=== PATIENT | female | born 1965 | race Caucasian/White ===

== ENCOUNTER 2016-10-06 12:42 | Emergency (ER) | payer MEDICARE ==
[2016-10-06 13:04] VITALS: BP 118/69
[2016-10-06] MEDS ORDERED: Ketorolac 60 MG/2 ML SDV IM ONE (13:19)
--- NOTE | 2016-10-06 13:21 | EDM.PDOC ---
ED HPI GENERAL MEDICAL PROBLEM - General Chief Complaint: Lower Extremity Injury/Pain Stated Complaint: POSSIBLE BROKEN ANKLE Time Seen by Provider: 10/06/16 13:10 Source of Information: Reports: Patient History Limitations: Reports: No Limitations - History of Present Illness INITIAL COMMENTS - FREE TEXT/NARRATIVE: States fell in a hole yesterday and twisted her ankle. Was painful last evening but more bruised today. Pain is in the lateral malleous area. Denies any numbness or tingling. Has not iced it. Onset Date: 10/05/16 Location: Reports: Lower Extremity, Right Quality: Reports: Throbbing Associated Symptoms: Reports: No Other Symptoms - Related Data Allergies Allergy/AdvReac Type Severity Reaction Status Date / Time aspirin [From Percodan] Allergy Rash Verified 03/16/16 02:51 Dairy Products Allergy Cannot Verified 10/06/16 12:50 Remember egg Allergy Cannot Verified 10/06/16 12:50 Remember hydrocodone Allergy Cannot Verified 10/06/16 12:50 Remember oxycodone HCl [From Percodan] Allergy Rash Verified 10/06/16 12:50 oxycodone terephthalate Allergy Rash Verified 10/06/16 12:50 [From Percodan] peanut Allergy Cannot Verified 10/06/16 12:50 Remember Home Meds: Home Meds Bromocriptine [Parlodel] 2.5 mg PO DAILY 03/28/13 [History] Cyanocobalamin (Vitamin B12) [Cyanocobalamin] 1,000 mcg IM Q30D 03/28/13 [ History] Diazepam [Valium] 2.5 mg PO TID PRN 03/28/13 [History] FLUoxetine HCl [Prozac] 40 mg PO DAILY 03/28/13 [History] Levothyroxine [Sythroid] 100 mcg PO DAILY 03/28/13 [History] Methylphenidate HCl [Ritalin] 20 mg PO TID 03/28/13 [History] Promethazine [Phenergan] 25 mg PO Q6H PRN 03/28/13 [History] oxyCODONE 10 mg PO TID 03/28/13 [History] traMADol HCl [Ultram] 50 mg PO BID PRN 03/28/13 [History] Albuterol Sulfate [Proair Hfa] 2 puff INH Q4HR PRN 07/03/15 [History] Cyclobenzaprine HCl 10 mg PO BEDTIME 07/03/15 [History] Divalproex Sodium 500 mg PO BID 07/03/15 [History] Past Medical History HEENT History: Reports: Impaired Vision Cardiovascular History: Reports: High Cholesterol Respiratory History: Reports: Asthma, Other (See Below) Other Respiratory History: lung nodule [employer] [place] History: Reports: Musculoskeletal History: Reports: Back Pain, Chronic, Neck Pain, Chronic, Osteoarthritis Neurological History: Reports: Brain Injury, Head Trauma, Migraines, Seizure Psychiatric History: Reports: ADHD, Anxiety, Bipolar, Depression, Emotional Problems, Mood Swings, Panic Attack, Psych Hospitalization(s) Endocrine/Metabolic History: Reports: Hypothyroidism, Vitamin D Deficiency Other Endocrine/Metabolic History: hypoglycemia Hematologic History: Reports: Anemia, B12 Deficiency - Past Surgical History HEENT Surgical History: Reports: Tonsillectomy GI Surgical History: Reports: Colonoscopy Social & Family History - Family History Family Medical History: Noncontributory - Tobacco Use Smoking Status *Q: Current Some Day Smoker Years of Tobacco use: 20 Packs/Tins Daily: 0.5 - Recreational Drug Use Recreational Drug Use: No Drug Use in Last 12 Months: No Recreational Drug Type: Reports: Marijuana/Hashish Recreational Drug Use Frequency: Monthly Review of Systems - Review of Systems Review Of Systems: See Below Constitutional: Reports: No Symptoms Musculoskeletal: Reports: Leg Pain, Foot Pain Skin: Denies: Wound ED EXAM, GENERAL - Physical Exam Exam: See Below Exam Limited By: No Limitations General Appearance: Alert, Moderate Distress Extremities: Other (right ankle is tender to touch. Mild swelling noted to the lateral ankle. SLight bruising noted. No numbness or tingling noted to the area. Pulse is strong. Good sensation noted distally. Decrease in ROM to the right ankle. ) Neurological: Alert, Oriented Skin Exam: Warm, Dry, Intact Course - Vital Signs Last Recorded V/S: Last Vital Signs Temp 97.6 F 10/06/16 12:54 Pulse 100 10/06/16 12:54 Resp 18 10/06/16 12:54 BP 118/69 10/06/16 12:54 Pulse Ox 95 10/06/16 12:54 - Orders/Labs/Meds Orders: Active Orders 24 hr Category Date Time Status Ankle Min 3V Rt [CR] Stat Exams 10/06/16 12:56 Stop Req Ankle Min 3V Rt [CR] Stat Exams 10/06/16 13:10 Ordered Meds: Medications Discontinued Medications Generic Name Dose Route Start Last Admin Trade Name Jessie PRN Reason Stop Dose Admin Ketorolac Tromethamine 60 mg 10/06/16 13:19 10/06/16 13:25 Toradol IM 10/06/16 13:20 60 mg ONETIME ONE Administration Departure - Departure Time of Disposition: 13:20 Disposition: Home, Self-Care 01 Condition: Good Clinical Impression: Right ankle sprain - Discharge Information Instructions: Ankle Sprain, [id number] Forms: ED Department Discharge Additional Instructions: Use Tylenol or advil for discomfort. If not controlled use your tramadol that you have at home for the discomfort. Ice ankle 20 minutes at a time 2-3 times a day for the swelling Use brace as much as possible to help support ankle. Take off at night or when not weight bearing. - Problem List & Annotations (1) Right ankle sprain SNOMED Code(s): 37236315 Code(s): S93.401A - SPRAIN OF UNSPECIFIED LIGAMENT OF RIGHT ANKLE, INIT ENCNTR Status: Acute Qualifiers: Encounter type: initial encounter Involved ligament of ankle: unspecified ligament Qualified Code(s): S93.401A - Sprain of unspecified ligament of right ankle, initial encounter - Problem List Review Problem List Initiated/Reviewed/Updated: Yes - My Orders Last 24 Hours: My Active Orders 10/06/16 13:10 Ankle Min 3V Rt [CR] Stat - Assessment/Plan Last 24 Hours: My Active Orders 10/06/16 13:10 Ankle Min 3V Rt [CR] Stat
== END 2016-10-06 13:39 | disposition home or self-care (01) ==
LOC: CC.ED 12:42
DX: S93.401A Sprain of unspecified ligament of right ankle, initial encounter (principal); E78.00 Pure hypercholesterolemia, unspecified; J45.909 Unspecified asthma, uncomplicated; M19.90 Unspecified osteoarthritis, unspecified site; F17.210 Nicotine dependence, cigarettes, uncomplicated; E03.9 Hypothyroidism, unspecified; Z86.2 Personal history of diseases of the blood and blood-forming organs and certain disorders involving the immune mechanism; Z98.890 Other specified postprocedural states; Z88.6 Allergy status to analgesic agent; Z88.5 Allergy status to narcotic agent; Z91.010 Allergy to peanuts; Z91.011 Allergy to milk products; Z79.899 Other long term (current) drug therapy; X50.9XXA Other and unspecified overexertion or strenuous movements or postures, initial encounter
CPT/HCPCS: 73610; 96372; 99283; J1885

== ENCOUNTER 2017-10-08 06:30 | Emergency (ER) | payer MEDICARE, OTHER ==
[2017-10-08 06:42] VITALS: BP 126/70
[2017-10-08] MEDS: SUMAtriptan 6 MG/0.5 ML SDV SUBCUT ONE (06:48)
[2017-10-08] MEDS: Ondansetron 4 MG Tab.DIS PO ONE (06:55)
--- NOTE | 2017-10-08 07:04 | EDM.PDOC ---
ED HPI GENERAL MEDICAL PROBLEM - General Chief Complaint: Headache Stated Complaint: migraine Time Seen by Provider: 10/08/17 06:57 Source of Information: Reports: Patient - History of Present Illness INITIAL COMMENTS - FREE TEXT/NARRATIVE: This patient is a 52 year old female that presents to the ER. This patient reports having chronic history of migraines. This patient reports that this feels exactly like her migraine that is starting. She reports headache frontal that migrates over the top part of head. Patient reports nausea, photophobia, phonophobia. The patient is alert and oriented. She reports that getting Imitrex helps her migraines. She reports she has a prescription for it, but its to expensive, so she does not fill it. No unilateral weaknesses. Onset: Today Onset Date: 10/08/17 Onset Time: 05:00 Duration: Getting Worse Location: Reports: Head Severity: Mild Improves with: Reports: None Worsens with: Reports: None Associated Symptoms: Reports: Headaches, Nausea/Vomiting. Denies: Confusion, Chest Pain, Cough, cough w sputum, Diaphoresis, Fever/Chills, Loss of Appetite, Rash, Seizure, Shortness of Breath, Weakness Headache Pain Score (Numeric/FACES): 7 - Related Data Allergies Allergy/AdvReac Type Severity Reaction Status Date / Time aspirin [From Percodan] Allergy Rash Verified 10/08/17 06:38 Dairy Products Allergy Cannot Verified 10/08/17 06:38 Remember egg Allergy Cannot Verified 10/08/17 06:38 Remember hydrocodone Allergy Cannot Verified 10/08/17 06:38 Remember oxycodone HCl [From Percodan] Allergy Rash Verified 10/08/17 06:38 oxycodone terephthalate Allergy Rash Verified 10/08/17 06:38 [From Percodan] peanut Allergy Cannot Verified 10/08/17 06:38 Remember Home Meds: Home Meds Bromocriptine [Parlodel] 2.5 mg PO DAILY 03/28/13 [History] Cyanocobalamin (Vitamin B12) [Cyanocobalamin] 1,000 mcg IM Q30D 03/28/13 [ History] FLUoxetine HCl [Prozac] 40 mg PO DAILY 03/28/13 [History] Levothyroxine [Sythroid] 100 mcg PO DAILY 03/28/13 [History] Methylphenidate HCl [Ritalin] 20 mg PO TID 03/28/13 [History] Promethazine [Phenergan] 25 mg PO Q6H PRN 03/28/13 [History] traMADol HCl [Ultram] 50 mg PO BID PRN 03/28/13 [History] Albuterol Sulfate [Proair Hfa] 2 puff INH Q4HR PRN 07/03/15 [History] Cyclobenzaprine HCl 10 mg PO BEDTIME 07/03/15 [History] Divalproex Sodium 500 mg PO BID 07/03/15 [History] ARIPiprazole [Abilify] 5 mg PO DAILY 10/08/17 [History] Ketorolac [Toradol] 10 mg PO QID 10/08/17 [History] Past Medical History HEENT History: Reports: Impaired Vision Cardiovascular History: Reports: Heart Murmur, High Cholesterol Respiratory History: Reports: Asthma, Other (See Below) Other Respiratory History: lung nodule 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: Musculoskeletal History: Reports: Back Pain, Chronic, Neck Pain, Chronic, Osteoarthritis Neurological History: Reports: Brain Injury, Head Trauma, Migraines, Seizure Psychiatric History: Reports: ADHD, Anxiety, Bipolar, Depression, Emotional Problems, Mood Swings, Panic Attack, Psych Hospitalization(s) Endocrine/Metabolic History: Reports: Hypothyroidism, Vitamin D Deficiency, Other (See Below) Other Endocrine/Metabolic History: hypoglycemia Hematologic History: Reports: Anemia, B12 Deficiency - Past Surgical History HEENT Surgical History: Reports: Tonsillectomy Respiratory Surgical History: Reports: None GI Surgical History: Reports: Colonoscopy Musculoskeletal Surgical History: Reports: None Social & Family History - Family History Family Medical History: Noncontributory - Tobacco Use Smoking Status *Q: Current Every Day Smoker Years of Tobacco use: 30 Packs/Tins Daily: 1 - Recreational Drug Use Recreational Drug Use: No ED ROS GENERAL - Review of Systems Review Of Systems: See Below Constitutional: Reports: No Symptoms HEENT: Reports: Other (photophobia/phonophobia) Respiratory: Reports: No Symptoms Cardiovascular: Reports: No Symptoms Endocrine: Reports: No Symptoms GI/Abdominal: Reports: Nausea : Reports: No Symptoms Musculoskeletal: Reports: No Symptoms Skin: Reports: No Symptoms Neurological: Reports: Headache Psychiatric: Reports: No Symptoms Hematologic/Lymphatic: Reports: No Symptoms Immunologic: Reports: No Symptoms - Physical Exam Exam: See Below Exam Limited By: No Limitations General Appearance: Alert, WD/WN, No Apparent Distress Eye Exam: Bilateral Eye: EOMI, Normal Inspection, PERRL Ears: Normal External Exam, Normal Canal, Hearing Grossly Normal, Normal TMs Nose: Normal Inspection, Normal Mucosa, No Blood Throat/Mouth: Normal Inspection, Normal Lips, Normal Teeth, Normal Gums, Normal Oropharynx, Normal Voice, No Airway Compromise Head Exam: Atraumatic, Normocephalic Neck: Normal Inspection, Supple, Non-Tender, Full Range of Motion Respiratory/Chest: No Respiratory Distress, Lungs Clear, Normal Breath Sounds, No Accessory Muscle Use Cardiovascular: Normal Peripheral Pulses, Regular Rate, Rhythm, No Edema, No Gallop, No JVD, No Murmur, No Rub GI/Abdominal: Normal Bowel Sounds, Soft, Non-Tender, No Organomegaly (Female) Exam: Deferred Rectal (Female) Exam: Deferred Neuro Exam (Abbreviated): Alert, Oriented, CN II-XII Intact, Normal Cognition, Normal Gait, No Motor/Sensory Deficits Back Exam: Normal Inspection, Full Range of Motion Extremities: Normal Inspection, Normal Range of Motion, Non-Tender, No Pedal Edema, Normal Capillary Refill Psychiatric: Normal Affect, Normal Mood Skin Exam: Warm, Dry, Intact, Normal Color, No Rash Course - Vital Signs Last Recorded V/S: Last Vital Signs Temp 95.9 F 10/08/17 06:39 Pulse 58 L 10/08/17 06:39 Resp 18 10/08/17 06:39 BP 126/70 10/08/17 06:39 Pulse Ox 95 10/08/17 06:39 - Orders/Labs/Meds Meds: Medications Discontinued Medications Generic Name Dose Route Start Last Admin Trade Name Jessie PRN Reason Stop Dose Admin Ondansetron HCl 4 mg 10/08/17 06:52 10/08/17 06:55 Zofran Odt PO 10/08/17 06:53 4 mg ONETIME ONE Administration Sumatriptan Succinate 6 mg 10/08/17 06:44 10/08/17 06:48 Imitrex SUBCUT 10/08/17 06:45 6 mg ONETIME ONE Administration Departure - Departure Time of Disposition: 07:03 Disposition: Home, Self-Care 01 Condition: Fair Clinical Impression: Migraine - Discharge Information *PRESCRIPTION DRUG MONITORING PROGRAM REVIEWED*: No *COPY OF PRESCRIPTION DRUG MONITORING REPORT IN PATIENT PHILOMENA: No Instructions: Migraine Headache, [id number] Referrals: Jb Price MD [Primary Care Provider] - Forms: ED Department Discharge Additional Instructions: Followup with your primary care provider Return to the ER for worsening of condition or any emergent concerns Increase fluids Go home and rest in a quiet, cool, dark room. - Assessment/Plan Plan: PLEASE SEE RN NOTE FOR PFSH.
== END 2017-10-08 07:11 | disposition home or self-care (01) ==
LOC: CC.ED 06:30
DX: G43.909 Migraine, unspecified, not intractable, without status migrainosus (principal); E78.00 Pure hypercholesterolemia, unspecified; J45.909 Unspecified asthma, uncomplicated; E03.9 Hypothyroidism, unspecified; F17.210 Nicotine dependence, cigarettes, uncomplicated; Z79.899 Other long term (current) drug therapy
CPT/HCPCS: 96372; 99282; 99283; A9270; J3030

== ENCOUNTER 2017-11-11 11:10 | Emergency (ER) | payer MEDICARE, OTHER ==
[2017-11-11 11:34] VITALS: BP 101/70
[2017-11-11] MEDS ORDERED: Ketorolac 60 MG/2 ML SDV IM ONE (11:36)
--- NOTE | 2017-11-11 11:44 | EDM.PDOC ---
ED HPI GENERAL MEDICAL PROBLEM - General Chief Complaint: Laceration Stated Complaint: lac 1st finger Time Seen by Provider: 11/11/17 11:30 Source of Information: Reports: Patient History Limitations: Reports: No Limitations - History of Present Illness INITIAL COMMENTS - FREE TEXT/NARRATIVE: Patient presents to ER with a laceration to her index finger of left hand. Was cutting broccoli and slipped with the knife. Occurred 2 hours ago and has had a bandage on it since that time and continued to work. Does admit to pain, throbbing. 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) Left Hand Pain Score (Numeric/FACES): 8 - Related Data Allergies Allergy/AdvReac Type Severity Reaction Status Date / Time aspirin [From Percodan] Allergy Rash Verified 11/11/17 11:34 Dairy Products Allergy Cannot Verified 11/11/17 11:34 Remember egg Allergy Cannot Verified 11/11/17 11:34 Remember hydrocodone Allergy Cannot Verified 11/11/17 11:34 Remember oxycodone HCl [From Percodan] Allergy Rash Verified 11/11/17 11:34 oxycodone terephthalate Allergy Rash Verified 11/11/17 11:34 [From Percodan] peanut Allergy Cannot Verified 11/11/17 11:34 Remember Home Meds: Home Meds Bromocriptine [Parlodel] 2.5 mg PO DAILY 03/28/13 [History] Cyanocobalamin (Vitamin B12) [Cyanocobalamin] 1,000 mcg IM Q30D 03/28/13 [ History] FLUoxetine HCl [Prozac] 40 mg PO DAILY 03/28/13 [History] Levothyroxine [Sythroid] 100 mcg PO DAILY 03/28/13 [History] Methylphenidate HCl [Ritalin] 20 mg PO TID 03/28/13 [History] Promethazine [Phenergan] 25 mg PO Q6H PRN 03/28/13 [History] traMADol HCl [Ultram] 50 mg PO BID PRN 03/28/13 [History] Albuterol Sulfate [Proair Hfa] 2 puff INH Q4HR PRN 07/03/15 [History] Cyclobenzaprine HCl 10 mg PO BEDTIME 07/03/15 [History] Divalproex Sodium 500 mg PO BID 07/03/15 [History] ARIPiprazole [Abilify] 5 mg PO DAILY 10/08/17 [History] Past Medical History HEENT History: Reports: Impaired Vision Cardiovascular History: Reports: Heart Murmur, High Cholesterol Respiratory History: Reports: Asthma, Other (See Below) Other Respiratory History: lung nodule 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: Musculoskeletal History: Reports: Back Pain, Chronic, Neck Pain, Chronic, Osteoarthritis Neurological History: Reports: Brain Injury, Head Trauma, Migraines, Seizure Psychiatric History: Reports: ADHD, Anxiety, Bipolar, Depression, Emotional Problems, Mood Swings, Panic Attack, Psych Hospitalization(s) Endocrine/Metabolic History: Reports: Hypothyroidism, Vitamin D Deficiency, Other (See Below) Other Endocrine/Metabolic History: hypoglycemia Hematologic History: Reports: Anemia, B12 Deficiency - Past Surgical History HEENT Surgical History: Reports: Tonsillectomy Respiratory Surgical History: Reports: None GI Surgical History: Reports: Colonoscopy Musculoskeletal Surgical History: Reports: None Social & Family History - Family History Family Medical History: Noncontributory ED ROS GENERAL - Review of Systems Review Of Systems: ROS reveals no pertinent complaints other than HPI. ED EXAM, SKIN/RASH Exam: See Below Exam Limited By: No Limitations General Appearance: Alert, WD/WN, No Apparent Distress Extremities: Other Neurological: Alert, Oriented Skin: Warm, Wound/Incision (1 cm superficial laceration to distal tip of index finger) Characteristics: Linear ED SKIN PROCEDURES - Laceration/Wound Repair Left Digit - 2nd (Index) Lac/Wound length In cm: 1 Appearance: Superficial, Clean Distal NVT: Neuro & Vascular Intact Anesthetic Type: Local Skin Prep: Other (steph-marii) Exploration/Debridement/Repair: Wound Explored Closed with: Dermabond, Steri-Strips Sterile Dressing Applied: Provider Tetanus Status Addressed: Yes Complications: No Course - Vital Signs Last Recorded V/S: Last Vital Signs Temp 96.3 F 11/11/17 11:32 Pulse 65 11/11/17 11:32 Resp 16 11/11/17 11:32 BP 101/70 11/11/17 11:32 Pulse Ox 96 11/11/17 11:32 - Orders/Labs/Meds Meds: Medications Discontinued Medications Generic Name Dose Route Start Last Admin Trade Name Jessie PRN Reason Stop Dose Admin Ketorolac Tromethamine 60 mg 11/11/17 11:36 11/11/17 11:44 Toradol IM 11/11/17 11:37 60 mg ONETIME ONE Administration Departure - Departure Time of Disposition: 11:43 Disposition: Home, Self-Care 01 Condition: Good Clinical Impression: Broken skin, Laceration of index finger - Discharge Information *PRESCRIPTION DRUG MONITORING PROGRAM REVIEWED*: No *COPY OF PRESCRIPTION DRUG MONITORING REPORT IN PATIENT PHILOMENA: No Referrals: Jb Price MD [Primary Care Provider] - Forms: ED Department Discharge Additional Instructions: 1. Keep wound clean and dry 2. Keep bandage on for 24 hours 3. Monitor for redness, drainage and call with any concerns of infection 4. Use Tramadol for pain at home 5. Follow up if any concerns.
== END 2017-11-11 11:50 | disposition home or self-care (01) ==
LOC: CC.ED 11:10
DX: S61.211A Laceration without foreign body of left index finger without damage to nail, initial encounter (principal); E78.00 Pure hypercholesterolemia, unspecified; W26.0XXA Contact with knife, initial encounter; Z79.82 Long term (current) use of aspirin; Z79.899 Other long term (current) drug therapy
CPT/HCPCS: 12001; 96372; 99283; J1885

== ENCOUNTER 2018-01-03 14:57 | Emergency (ER) | payer MEDICARE ==
[2018-01-03 15:11] VITALS: BP 126/74
[2018-01-03] MEDS ORDERED: Sodium Chloride 0.9% 1,000 ML IV SCH (15:30)
[2018-01-03] MEDS ORDERED: fentaNYL 100 MCG/2 ML SDV IVPUSH ONE (15:31)
[2018-01-03] MEDS ORDERED: Ondansetron 4 MG/2 ML SDV IVPUSH PRN (15:31)
[2018-01-03] MEDS ORDERED: Iopamidol 612 MG/ML 100 ML Bottle IVPUSH ONE (15:37)
[2018-01-03 15:51] LABS: CHLORIDE,CL 106 mEq/L (98-106); SODIUM,NA 142 mEq/L (136-145)
--- NOTE | 2018-01-03 17:21 | EDM.PDOC ---
ED HPI GENERAL MEDICAL PROBLEM - General Chief Complaint: Abdominal Pain Stated Complaint: ? GALL BLADDER ATTACK Time Seen by Provider: 01/03/18 15:24 Source of Information: Reports: Patient History Limitations: Reports: No Limitations - History of Present Illness INITIAL COMMENTS - FREE TEXT/NARRATIVE: Erica is a 52 yo female who presents to the ER via private vehicle with complaints of abdominal pain. States the pain has been intermittent and is very sharp in nature. Feels it mostly to be isolated to right above the umbilicus. States she still has her gallbladder and appendix. Denies any fevers. Admits the pain has been more persistent the last few days. Appetite has been fairly normal for her. Last bowel movement yesterday and felt it was normal for her, maybe slightly loose. Feels bloated but has been having a difficult time with passing gas. She denies any urinary complaints. No fevers or chills. Usually will get discomfort when trying to stand up from a seated position. States the pain will come on fast and doesn't last very long. UPPER UMBILICAL Pain Score (Numeric/FACES): 10 - Related Data Allergies Allergy/AdvReac Type Severity Reaction Status Date / Time aspirin [From Percodan] Allergy Rash Verified 01/03/18 15:11 Dairy Products Allergy Cannot Verified 01/03/18 15:11 Remember egg Allergy Cannot Verified 01/03/18 15:11 Remember hydrocodone Allergy Cannot Verified 01/03/18 15:11 Remember oxycodone HCl [From Percodan] Allergy Rash Verified 01/03/18 15:11 oxycodone terephthalate Allergy Rash Verified 01/03/18 15:11 [From Percodan] peanut Allergy Cannot Verified 01/03/18 15:11 Remember Home Meds: Home Meds Bromocriptine [Parlodel] 2.5 mg PO DAILY 03/28/13 [History] Cyanocobalamin (Vitamin B12) [Cyanocobalamin] 1,000 mcg IM Q30D 03/28/13 [ History] FLUoxetine HCl [Prozac] 40 mg PO DAILY 03/28/13 [History] Levothyroxine [Sythroid] 100 mcg PO DAILY 03/28/13 [History] Methylphenidate HCl [Ritalin] 20 mg PO TID 03/28/13 [History] Promethazine [Phenergan] 25 mg PO Q6H PRN 03/28/13 [History] traMADol HCl [Ultram] 50 mg PO BID PRN 03/28/13 [History] Albuterol Sulfate [Proair Hfa] 2 puff INH Q4HR PRN 07/03/15 [History] Cyclobenzaprine HCl 10 mg PO BEDTIME 07/03/15 [History] Divalproex Sodium 500 mg PO BID 07/03/15 [History] ARIPiprazole [Abilify] 5 mg PO DAILY 10/08/17 [History] Past Medical History HEENT History: Reports: Impaired Vision Cardiovascular History: Reports: Heart Murmur, High Cholesterol Respiratory History: Reports: Asthma, Other (See Below) Other Respiratory History: lung nodule 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: Musculoskeletal History: Reports: Back Pain, Chronic, Neck Pain, Chronic, Osteoarthritis Neurological History: Reports: Brain Injury, Head Trauma, Migraines, Seizure Psychiatric History: Reports: ADHD, Anxiety, Bipolar, Depression, Emotional Problems, Mood Swings, Panic Attack, Psych Hospitalization(s) Endocrine/Metabolic History: Reports: Hypothyroidism, Vitamin D Deficiency, Other (See Below) Other Endocrine/Metabolic History: hypoglycemia Hematologic History: Reports: Anemia, B12 Deficiency - Past Surgical History HEENT Surgical History: Reports: Tonsillectomy Respiratory Surgical History: Reports: None GI Surgical History: Reports: Bariatric Procedure, Colonoscopy, Hernia Repair/ Other Other GI Surgeries/Procedures: GASTRIC BYPASS, HIATAL HERNIA REPAIR Musculoskeletal Surgical History: Reports: None Social & Family History - Family History Family Medical History: Noncontributory - Tobacco Use Smoking Status *Q: Current Every Day Smoker Years of Tobacco use: 40 Packs/Tins Daily: 1 - Recreational Drug Use Recreational Drug Use: No ED ROS GENERAL - Review of Systems Review Of Systems: ROS reveals no pertinent complaints other than HPI. Constitutional: Reports: No Symptoms HEENT: Reports: No Symptoms Respiratory: Reports: No Symptoms Cardiovascular: Reports: No Symptoms GI/Abdominal: Reports: Abdominal Pain, Flatus, Nausea. Denies: Bloody Stool, Constipation, Diarrhea, Decreased Appetite, Hematemesis, Hematochezia, Melena, Stool Incontinence, Vomiting : Reports: No Symptoms ED EXAM, GI/ABD - Physical Exam Exam: See Below Exam Limited By: No Limitations General Appearance: Alert, Mild Distress Ears: Normal External Exam, Normal Canal, Hearing Grossly Normal, Normal TMs Nose: Normal Inspection, Normal Mucosa, No Blood Throat/Mouth: Normal Inspection, Normal Lips, Normal Teeth, Normal Gums, Normal Oropharynx, Normal Voice, No Airway Compromise Head: Atraumatic, Normocephalic Neck: Normal Inspection, Supple, Non-Tender Respiratory/Chest: No Respiratory Distress, Lungs Clear, Normal Breath Sounds, No Accessory Muscle Use Cardiovascular: Regular Rate, Rhythm, No Edema, No Murmur GI/Abdominal Exam: Normal Bowel Sounds, Tender (midabdominal, negative mcburney' s point. Slight epigastric tenderness as well. ). No: Distended, Guarding, Rigid, Rebound, Hernia, Mass Back Exam: Normal Inspection. No: CVA Tenderness (L), CVA Tenderness (R) Extremities: Normal Inspection Neurological: Alert, Oriented, Normal Cognition, No Motor/Sensory Deficits Psychiatric: Normal Affect, Normal Mood Skin Exam: Warm, Dry, Intact, Normal Color, No Rash Course - Vital Signs Last Recorded V/S: Last Vital Signs Temp 97.2 F 01/03/18 14:59 Pulse 64 01/03/18 14:59 Resp 18 01/03/18 14:59 BP 126/74 01/03/18 14:59 Pulse Ox 100 01/03/18 14:59 - Orders/Labs/Meds Orders: Active Orders 24 hr Category Date Time Status Abdomen 2V AP Flat Upright [CR] Stat Exams 01/03/18 15:28 Stop Req Abdomen Pelvis w Cont [CT] Stat Exams 01/03/18 15:29 Taken Ondansetron [Zofran] Med 01/03/18 15:31 Active 4 mg IVPUSH Q6H PRN Sodium Chloride 0.9% [Normal Saline] 1,000 ml Med 01/03/18 15:30 Active IV ASDIRECTED Medication Orders Sodium Chloride (Normal Saline) 1,000 mls @ 150 mls/hr IV ASDIRECTED FRANKI Last Admin: 01/03/18 15:43 Dose: 150 mls/hr Ondansetron HCl (Zofran) 4 mg IVPUSH Q6H PRN PRN Reason: Nausea Last Admin: 01/03/18 15:38 Dose: 4 mg Labs: Laboratory Tests 01/03/18 01/03/18 01/03/18 Range/Units 15:26 15:26 15:26 WBC 11.1 H (5.0-10.0) 10^3/uL RBC 4.00 (4.00-5.50) 10^6/uL Hgb 11.9 L (12.0-16.0) g/dL Hct 36.7 L (37.0-47.0) % MCV 91.8 (82.0-94.0) fL MCH 29.8 (27.0-32.0) pg MCHC 32.4 L (33.0-38.0) g/dL RDW Coeff of Nancy 14.2 (11.0-15.0) % Plt Count 373 (150-400) 10^3/uL Neut % (Auto) 60.0 (35-85) % Lymph % (Auto) 28.9 (10-55) % [place] % (Auto) 10.0 (0-16) % Eos % (Auto) 1.0 (0-5) % Baso % (Auto) 0.1 (0-3) % Neut # (Auto) 6.65 (1.80-7.00) 10^3/uL Lymph # (Auto) 3.21 (1.00-4.80) 10^3/uL [place] # (Auto) 1.11 H (0.00-0.80) 10^3/uL Eos # (Auto) 0.11 (0.00-0.45) 10^3/uL Baso # (Auto) 0.01 10^3/uL Sodium 142 (136-145) mEq/L Potassium 4.0 (3.5-5.0) mEq/L Chloride 106 (98-106) mEq/L Carbon Dioxide 27 (21-32) mmol/L BUN 29 H D (7-18) mg/dL Creatinine 0.7 (0.6-1.0) mg/dL Est Cr Clr Drug Dosing 82.67 mL/min Estimated GFR (MDRD) > 60 (>=60) mL/min Glucose 69 L D (75-99) mg/dL Calcium 8.3 L (8.4-10.1) mg/dL Total Bilirubin 0.2 (0.0-1.0) mg/dL AST 11 L (15-37) U/L ALT 16 (12-78) U/L Alkaline Phosphatase 56 (46-116) U/L C-Reactive Protein 0.4 (0.2-0.8) mg/dL Total Protein 5.8 L (6.4-8.2) g/dL Albumin 2.6 L (3.4-5.0) g/dL Amylase 27 (25-115) U/L Urine Color Yellow (YELLOW) Urine Appearance Clear (CLEAR) Urine pH 6.5 (4.5-8.0) Ur Specific [place] 1.025 H (1.003-1.020) Urine Protein Negative (NEGATIVE) mg/dL Urine Glucose (UA) 100 H (NEGATIVE) mg/dL Urine Ketones Trace H (NEGATIVE) mg/dL Urine Occult Blood Negative (NEGATIVE) Urine Nitrite Negative (NEGATIVE) Urine Bilirubin Negative (NEGATIVE) Urine Urobilinogen 2.0 H (0.2-1.0) EU/dL Ur Leukocyte Esterase Negative (NEGATIVE) Urine RBC Not seen (0-5) /HPF Urine WBC Not seen (0-5) /HPF Ur Epithelial Cells Few H (NOT SEEN) /HPF Urine Mucus Few H (NOT SEEN) /HPF Meds: Medications Generic Name Dose Route Start Last Admin Trade Name Freq PRN Reason Stop Dose Admin Sodium Chloride 1,000 mls @ 150 mls/hr 01/03/18 15:30 01/03/18 15:43 Normal Saline IV 150 mls/hr ASDIRECTED FRANKI Administration Ondansetron HCl 4 mg 01/03/18 15:31 01/03/18 15:38 Zofran IVPUSH 4 mg Q6H PRN Administration Nausea Discontinued Medications Generic Name Dose Route Start Last Admin Trade Name Freq PRN Reason Stop Dose Admin Fentanyl 50 mcg 01/03/18 15:31 01/03/18 15:38 Sublimaze IVPUSH 01/03/18 15:32 50 mcg ONETIME ONE Administration Iopamidol 100 ml 01/03/18 15:37 01/03/18 15:54 Isovue-300 (61%) IVPUSH 01/03/18 15:38 100 ml ONETIME ONE Administration Departure - Departure Time of Disposition: 17:21 Disposition: Home, Self-Care 01 Clinical Impression: Constipation Qualifiers: Constipation type: unspecified constipation type Qualified Code(s): K59.00 - Constipation, unspecified - Discharge Information Instructions: Constipation, Adult, [id number] Referrals: PCP,None [Primary Care Provider] - Forms: ED Department Discharge Additional Instructions: 1) Recommend drinking half bottle of magnesium citrate. 2) Miralax 17 grams daily 3) increase water intake. 4) Alternate Tylenol and ibuprofen for discomfort 5) Increase fiber in diet 6) Follow up if any concerns. - Problem List & Annotations (1) Constipation SNOMED Code(s): 69178255 Code(s): K59.00 - CONSTIPATION, UNSPECIFIED Status: Acute Current Visit: Yes Qualifiers: Constipation type: unspecified constipation type Qualified Code(s): K59.00 - Constipation, unspecified - My Orders Last 24 Hours: My Active Orders 01/03/18 15:28 Abdomen 2V AP Flat Upright [CR] Stat 01/03/18 15:29 Abdomen Pelvis w Cont [CT] Stat 01/03/18 15:30 Sodium Chloride 0.9% [Normal Saline] 1,000 ml IV ASDIRECTED 01/03/18 15:31 Ondansetron [Zofran] 4 mg IVPUSH Q6H PRN - Assessment/Plan Last 24 Hours: My Active Orders 01/03/18 15:28 Abdomen 2V AP Flat Upright [CR] Stat 01/03/18 15:29 Abdomen Pelvis w Cont [CT] Stat 01/03/18 15:30 Sodium Chloride 0.9% [Normal Saline] 1,000 ml IV ASDIRECTED 01/03/18 15:31 Ondansetron [Zofran] 4 mg IVPUSH Q6H PRN Plan: Laboratory work unremarkable. CT of the abdomen/pelvis showed moderate constipation. No sign of appendicitis or gallbladder etiology. Patient was given intravenous fluids, zofran and fentanyl (1 time dose) for discomfort. She admitted to feeling a lot better. Will discharge home, see additional instructions for details.
== END 2018-01-03 17:22 | disposition home or self-care (01) ==
LOC: CC.ED 14:57
DX: K59.00 Constipation, unspecified (principal); E03.9 Hypothyroidism, unspecified; F17.210 Nicotine dependence, cigarettes, uncomplicated; Z79.899 Other long term (current) drug therapy; Z88.8 Allergy status to other drugs, medicaments and biological substances; Z91.010 Allergy to peanuts; Z91.012 Allergy to eggs; Z91.011 Allergy to milk products; Z88.6 Allergy status to analgesic agent
CPT/HCPCS: 36415; 74177; 80053; 81001; 82150; 85025; 86140; 96361; 96374; 96375; 99284; J2405; J3010; J7030; Q9967

== ENCOUNTER 2018-11-11 17:41 | Emergency (ER) | payer MEDICARE ==
[2018-11-11 17:43] VITALS: BP 158/63; PULSE 72
--- NOTE | 2018-11-11 17:47 | EDM.PDOC ---
ED HPI GENERAL MEDICAL PROBLEM - General Chief Complaint: Lower Extremity Injury/Pain Stated Complaint: R Knee Pain Time Seen by Provider: 11/11/18 17:43 Source of Information: Reports: Patient History Limitations: Reports: No Limitations - History of Present Illness INITIAL COMMENTS - FREE TEXT/NARRATIVE: in with c/o slipped on a greasy floor at work this afternoon, has pain and bruising to the right knee, denies any ankle, hip, neck or back pain, no numbness or tingling Onset: Today Duration: Hour(s): Location: Reports: Upper Extremity, Right Quality: Reports: Ache Severity: Mild Improves with: Reports: None Worsens with: Reports: Movement Associated Symptoms: Reports: No Other Symptoms 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 (see below) (ultram) - Related Data Allergies Allergy/AdvReac Type Severity Reaction Status Date / Time aspirin [From Percodan] Allergy Rash Verified 01/03/18 15:11 Dairy Products Allergy Cannot Verified 01/03/18 15:11 Remember egg Allergy Cannot Verified 01/03/18 15:11 Remember hydrocodone Allergy Cannot Verified 01/03/18 15:11 Remember oxycodone HCl [From Percodan] Allergy Rash Verified 01/03/18 15:11 oxycodone terephthalate Allergy Rash Verified 01/03/18 15:11 [From Percodan] peanut Allergy Cannot Verified 01/03/18 15:11 Remember Home Meds: Home Meds Bromocriptine [Parlodel] 2.5 mg PO DAILY 03/28/13 [History] Cyanocobalamin (Vitamin B12) [Cyanocobalamin] 1,000 mcg IM Q30D 03/28/13 [ History] FLUoxetine HCl [Prozac] 40 mg PO DAILY 03/28/13 [History] Levothyroxine [Sythroid] 100 mcg PO DAILY 03/28/13 [History] Methylphenidate HCl [Ritalin] 20 mg PO TID 03/28/13 [History] Promethazine [Phenergan] 25 mg PO Q6H PRN 03/28/13 [History] traMADol HCl [Ultram] 50 mg PO BID PRN 03/28/13 [History] Albuterol Sulfate [Proair Hfa] 2 puff INH Q4HR PRN 07/03/15 [History] Cyclobenzaprine HCl 10 mg PO BEDTIME 07/03/15 [History] Divalproex Sodium 500 mg PO BID 07/03/15 [History] ARIPiprazole [Abilify] 5 mg PO DAILY 10/08/17 [History] Past Medical History HEENT History: Reports: Impaired Vision Cardiovascular History: Reports: Heart Murmur, High Cholesterol Respiratory History: Reports: Asthma, Other (See Below) Other Respiratory History: lung nodule 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: Musculoskeletal History: Reports: Back Pain, Chronic, Neck Pain, Chronic, Osteoarthritis Neurological History: Reports: Brain Injury, Head Trauma, Migraines, Seizure Psychiatric History: Reports: ADHD, Anxiety, Bipolar, Depression, Emotional Problems, Mood Swings, Panic Attack, Psych Hospitalization(s) Endocrine/Metabolic History: Reports: Hypothyroidism, Vitamin D Deficiency, Other (See Below) Other Endocrine/Metabolic History: hypoglycemia Hematologic History: Reports: Anemia, B12 Deficiency - Past Surgical History HEENT Surgical History: Reports: Tonsillectomy Respiratory Surgical History: Reports: None GI Surgical History: Reports: Bariatric Procedure, Colonoscopy, Hernia Repair/ Other Other GI Surgeries/Procedures: GASTRIC BYPASS, HIATAL HERNIA REPAIR Musculoskeletal Surgical History: Reports: None Social & Family History - Family History Family Medical History: Noncontributory Review of Systems - Review of Systems Review Of Systems: See Below Respiratory: Reports: No Symptoms Cardiovascular: Reports: No Symptoms GI/Abdominal: Reports: No Symptoms Musculoskeletal: Reports: Joint Pain (right knee). Denies: Neck Pain, Back Pain Skin: Reports: Bruising. Denies: Rash, Erythema Neurological: Reports: No Symptoms. Denies: Numbness, Tingling Psychiatric: Reports: No Symptoms ED EXAM, GENERAL - Physical Exam Exam: See Below Exam Limited By: No Limitations General Appearance: Alert, WD/WN, No Apparent Distress Nose: Normal Inspection Throat/Mouth: Normal Inspection, Normal Lips, Normal Voice, No Airway Compromise Head: Atraumatic, Normocephalic Neck: Normal Inspection, Supple, Non-Tender, Full Range of Motion Respiratory/Chest: No Respiratory Distress, Lungs Clear, Normal Breath Sounds Cardiovascular: Normal Peripheral Pulses, Regular Rate, Rhythm, No Murmur Peripheral Pulses: 2+: Posterior Tibial (L), Posterior Tibial (R) GI/Abdominal: Soft, Non-Tender Back Exam: Normal Inspection, Full Range of Motion. No: Vertebral Tenderness Extremities: Normal Range of Motion, Normal Capillary Refill. No: Non-Tender ( right knee pain) Neurological: Alert, Oriented, Normal Cognition, No Motor/Sensory Deficits Psychiatric: Normal Affect, Normal Mood Skin Exam: Warm, Dry, Intact, Normal Color, No Rash, Ecchymosis (right knee) ED TRAUMA EXTREMITY PROCEDURES - Splinting Right Lower Extremity Pre-Procedure NV Status: Normal Post-Procedure NV Status: Normal Splint Material: Other (yariel wrap) Applied & Form Fitted By: Provider Provider Post-Splint Application NV Check: NV Status Normal Complications: Yes Course - Vital Signs Last Recorded V/S: Last Vital Signs Temp 36.3 C 11/11/18 17:41 Pulse 72 11/11/18 17:41 Resp 16 11/11/18 17:41 BP 158/63 H 11/11/18 17:41 Pulse Ox 98 11/11/18 17:41 - Orders/Labs/Meds Orders: Active Orders 24 hr Category Date Time Status Yariel Bandage [RC] ONETIME Care 11/11/18 18:04 Active Knee 3V Rt [CR] Stat Exams 11/11/18 17:41 Taken Ketorolac [Toradol] Med 11/11/18 18:09 Once 60 mg IM ONETIME ONE - Radiology Interpretation Free Text/Narrative:: xray right knee is neg for fx or dislocation, 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, radiology reading still pending Departure - Departure Time of Disposition: 18:02 Disposition: Home, Self-Care 01 Condition: Good Clinical Impression: Right knee sprain Qualifiers: Encounter type: initial encounter - Discharge Information *PRESCRIPTION DRUG MONITORING PROGRAM REVIEWED*: Not Applicable *COPY OF PRESCRIPTION DRUG MONITORING REPORT IN PATIENT PHILOMENA: Not Applicable Instructions: Knee Sprain, Adult, [id number] Referrals: Jb Price MD [Primary Care Provider] - Forms: ED Department Discharge Additional Instructions: elevate right leg on two pillows ice off and on frequently for two days wear the yariel wrap as discussed continue your current pain medication as ordered follow up with your family doctor this week return to the ER as needed - Problem List & Annotations (1) Right knee sprain SNOMED Code(s): 12380225 Code(s): S83.91XA - SPRAIN OF UNSPECIFIED SITE OF RIGHT KNEE, INITIAL ENCOUNTER Status: Acute Priority: Medium Current Visit: Yes Qualifiers: Encounter type: initial encounter - Problem List Review Problem List Initiated/Reviewed/Updated: Yes - My Orders Last 24 Hours: My Active Orders 11/11/18 17:41 Knee 3V Rt [CR] Stat 11/11/18 18:04 Yariel Bandage [RC] ONETIME 11/11/18 18:09 Ketorolac [Toradol] 60 mg IM ONETIME ONE - Assessment/Plan Last 24 Hours: My Active Orders 11/11/18 17:41 Knee 3V Rt [CR] Stat 11/11/18 18:04 Yariel Bandage [RC] ONETIME 11/11/18 18:09 Ketorolac [Toradol] 60 mg IM ONETIME ONE Plan: as above
[2018-11-11] MEDS ORDERED: Ketorolac 60 MG/2 ML SDV IM ONE (18:09)
== END 2018-11-11 18:18 | disposition home or self-care (01) ==
LOC: CC.ED 17:41
DX: S83.91XA Sprain of unspecified site of right knee, initial encounter (principal); E78.00 Pure hypercholesterolemia, unspecified; J45.909 Unspecified asthma, uncomplicated; F41.9 Anxiety disorder, unspecified; F32.9 Major depressive disorder, single episode, unspecified; E03.9 Hypothyroidism, unspecified; Z88.4 Allergy status to anesthetic agent; Z91.012 Allergy to eggs; Z91.011 Allergy to milk products; Z88.5 Allergy status to narcotic agent; Z91.010 Allergy to peanuts; Z79.899 Other long term (current) drug therapy; W01.0XXA Fall on same level from slipping, tripping and stumbling without subsequent striking against object, initial encounter; Y99.0 Civilian activity done for income or pay
CPT/HCPCS: 73562-RT; 96372; 99283; 99283-25; J1885

== ENCOUNTER 2019-03-28 13:22 | Emergency (ER) | payer MEDICARE ==
[2019-03-28 13:29] VITALS: BP 118/62; PULSE 86
[2019-03-28 13:59] LABS: CHLORIDE,CL 110 mEq/L (98-106); SODIUM,NA 149 mEq/L (136-145)
--- NOTE | 2019-03-29 07:25 | EDM.PDOCBH ---
ED HPI GENERAL MEDICAL PROBLEM - General Chief Complaint: Behavioral/Psych Stated Complaint: suicidal attempt Time Seen by Provider: 03/28/19 13:50 Source of Information: Reports: Patient, EMS, Family (), Police History Limitations: Reports: Altered Mental Status, Intoxication - History of Present Illness INITIAL COMMENTS - FREE TEXT/NARRATIVE: pt states repeatedly she just wants to . She attempted to kill herself by putting a hose from her tailpipe into her pickup in the police dept parking lot and was seen by a passerby. Unknown how long she was there prior to being found. She admits to drinking all day. She has been talking to Dr. Pinedo earlier. She is very anxious and upset and crying. Law enforcement was present. relates that this is the time of year she struggles with every year as she has to register as a sex offender and she feels that she was wrongly accused. She does have a long standing history of mental illness that she sees Dr. Pinedo and Dr. Yung in [facility]. - Related Data Allergies Allergy/AdvReac Type Severity Reaction Status Date / Time aspirin [From Percodan] Allergy Rash Verified 01/03/18 15:11 Dairy Products Allergy Cannot Verified 01/03/18 15:11 Remember egg Allergy Cannot Verified 01/03/18 15:11 Remember hydrocodone Allergy Cannot Verified 01/03/18 15:11 Remember oxycodone HCl [From Percodan] Allergy Rash Verified 01/03/18 15:11 oxycodone terephthalate Allergy Rash Verified 01/03/18 15:11 [From Percodan] peanut Allergy Cannot Verified 01/03/18 15:11 Remember Home Meds: Home Meds Bromocriptine [Parlodel] 2.5 mg PO DAILY 03/28/13 [History] Cyanocobalamin (Vitamin B12) [Cyanocobalamin] 1,000 mcg IM Q30D 03/28/13 [ History] FLUoxetine HCl [Prozac] 40 mg PO DAILY 03/28/13 [History] Levothyroxine [Sythroid] 100 mcg PO DAILY 03/28/13 [History] Methylphenidate HCl [Ritalin] 20 mg PO TID 03/28/13 [History] Promethazine [Phenergan] 25 mg PO Q6H PRN 03/28/13 [History] traMADol HCl [Ultram] 50 mg PO BID PRN 03/28/13 [History] Albuterol Sulfate [Proair Hfa] 2 puff INH Q4HR PRN 07/03/15 [History] Cyclobenzaprine HCl 10 mg PO BEDTIME 07/03/15 [History] Divalproex Sodium 500 mg PO BID 07/03/15 [History] ARIPiprazole [Abilify] 5 mg PO DAILY 10/08/17 [History] Gabapentin [Neurontin] 300 mg PO TID 03/28/19 [History] Past Medical History HEENT History: Reports: Impaired Vision Cardiovascular History: Reports: Heart Murmur, High Cholesterol Respiratory History: Reports: Asthma, Other (See Below) Other Respiratory History: lung nodule 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: Reports: Musculoskeletal History: Reports: Back Pain, Chronic, Neck Pain, Chronic, Osteoarthritis Neurological History: Reports: Brain Injury, Head Trauma, Migraines, Seizure Psychiatric History: Reports: ADHD, Anxiety, Bipolar, Depression, Emotional Problems, Mood Swings, Panic Attack, Psych Hospitalization(s) Endocrine/Metabolic History: Reports: Hypothyroidism, Vitamin D Deficiency, Other (See Below) Other Endocrine/Metabolic History: hypoglycemia Hematologic History: Reports: Anemia, B12 Deficiency - Past Surgical History HEENT Surgical History: Reports: Tonsillectomy Respiratory Surgical History: Reports: None GI Surgical History: Reports: Bariatric Procedure, Colonoscopy, Hernia Repair/ Other Other GI Surgeries/Procedures: GASTRIC BYPASS, HIATAL HERNIA REPAIR Musculoskeletal Surgical History: Reports: None Social & Family History - Family History Family Medical History: Noncontributory - Tobacco Use Smoking Status *Q: Current Every Day Smoker Years of Tobacco use: 40 Packs/Tins Daily: 1 - Caffeine Use Caffeine Use: Reports: None - Recreational Drug Use Recreational Drug Use: Yes Recreational Drug Type: Reports: Methamphetamine ED ROS GENERAL - Review of Systems Review Of Systems: See Below Psychiatric: Reports: Agitation, Anxiety, Depression, Suicidal Ideation ED EXAM, BEHAVIORAL HEALTH - Physical Exam Exam: See Below Exam Limited By: Intoxication General Appearance: Alert, Anxious Respiratory/Chest: No Respiratory Distress, Lungs Clear, Normal Breath Sounds Cardiovascular: Regular Rate, Rhythm, No Edema GI/Abdominal: Normal Bowel Sounds, Soft, Non-Tender Neurological: Alert, Oriented x 3 Psychiatric: Oriented, Restless, Agitated, Poor Eye Contact, Suicidal Plan, Suicidal Thoughts Skin Exam: Warm, Dry, Intact COURSE, BEHAVIORAL HEALTH COMP - Course Vital Signs: Last Vital Signs Temp 96.8 F 03/28/19 13:25 Pulse 86 03/28/19 13:25 Resp 18 03/28/19 13:25 BP 118/62 03/28/19 13:25 Pulse Ox 94 L 03/28/19 13:25 Orders, Labs, Meds: Laboratory Tests 03/28/19 03/28/19 03/28/19 Range/Units 13:38 13:45 13:50 WBC 7.1 (5.0-10.0) 10^3/uL RBC 4.27 (4.00-5.50) 10^6/uL Hgb 11.9 L (12.0-16.0) g/dL Hct 37.0 (37.0-47.0) % MCV 86.7 (82.0-94.0) fL MCH 27.9 (27.0-32.0) pg MCHC 32.2 L (33.0-38.0) g/dL RDW Coeff of Nancy 17.9 H (11.0-15.0) % Plt Count 345 (150-400) 10^3/uL Neut % (Auto) 44.7 (35-85) % Lymph % (Auto) 44.4 (10-55) % [place] % (Auto) 7.7 (0-16) % Eos % (Auto) 2.8 (0-5) % Baso % (Auto) 0.4 (0-3) % Neut # (Auto) 3.17 (1.80-7.00) 10^3/uL Lymph # (Auto) 3.15 (1.00-4.80) 10^3/uL [place] # (Auto) 0.55 (0.00-0.80) 10^3/uL Eos # (Auto) 0.20 (0.00-0.45) 10^3/uL Baso # (Auto) 0.03 10^3/uL Sodium 149 H (136-145) mEq/L Potassium 3.8 (3.5-5.0) mEq/L Chloride 110 H (98-106) mEq/L Carbon Dioxide 29 (21-32) mmol/L BUN 15 (7-18) mg/dL Creatinine 0.8 (0.6-1.0) mg/dL Est Cr Clr Drug Dosing 71.50 mL/min Estimated GFR (MDRD) > 60 (>=60) mL/min Glucose 80 (75-99) mg/dL Calcium 8.1 L (8.4-10.1) mg/dL Urine Opiates Screen Negative (NEGATIVE) Ur Oxycodone Screen Negative (NEGATIVE) Urine Methadone Screen Negative (NEGATIVE) Ur Barbiturates Screen Negative (NEGATIVE) U Tricyclic Antidepress Negative (NEGATIVE) Ur Phencyclidine Scrn Negative (NEGATIVE) Ur Amphetamine Screen Negative (NEGATIVE) U Methamphetamines Scrn Negative (NEGATIVE) Urine MDMA Screen Negative (NEGATIVE) U Benzodiazepines Scrn Negative (NEGATIVE) Urine Cocaine Screen Negative (NEGATIVE) U Marijuana (THC) Screen Negative (NEGATIVE) Ethyl Alcohol 256 H (0-3) mg/dL Re-Assessment/Re-Exam: 03/28/2019 1430 Discussed case with screener from [facility] and [facility]. They will accept her in transfer. She will be transported by body rolling machine tender department who are in attendance. Medical Clearance: 03/28/19 1420 Pt is medically cleared to go to [facility] as she has been cleared by screener there. [address] Quezada at [facility] who is accepting pt for transfer. Departure - Departure Time of Disposition: 14:55 Disposition: DC/Tfer to Psych Hosp/Unit 65 Condition: Fair Clinical Impression: Self-harm, Alcohol abuse - Discharge Information *PRESCRIPTION DRUG MONITORING PROGRAM REVIEWED*: Not Applicable *COPY OF PRESCRIPTION DRUG MONITORING REPORT IN PATIENT PHILOMENA: Not Applicable Referrals: PCP,Unknown [Ordering Only Provider] - Forms: ED Department Discharge Additional Instructions: Transport pt to [facility] for further care and to prevent her from harming herself as she continues to express her desire to . Pt will be transported to [facility] in [place]. Sepsis Event Note - Evaluation Sepsis Screening Result: No Definite Risk - Problem List & Annotations (1) Self-harm SNOMED Code(s): 791949147 Code(s): MJK1061 - Status: Acute Priority: High (2) Anxiety SNOMED Code(s): 94056787 Code(s): F41.9 - ANXIETY DISORDER, UNSPECIFIED Status: Chronic Priority: High (3) Alcohol abuse SNOMED Code(s): 84123753 Code(s): F10.10 - ALCOHOL ABUSE, UNCOMPLICATED Status: Chronic Priority: Medium (4) Depressive disorder SNOMED Code(s): 42677833 Code(s): F32.9 - MAJOR DEPRESSIVE DISORDER, SINGLE EPISODE, UNSPECIFIED Status: Chronic Priority: High - Problem List Review Problem List Initiated/Reviewed/Updated: Yes
== END 2019-03-28 16:10 ==
LOC: CC.ED 13:22
DX: R45.851 Suicidal ideations (principal); F10.10 Alcohol abuse, uncomplicated; J45.909 Unspecified asthma, uncomplicated; E03.9 Hypothyroidism, unspecified; F32.9 Major depressive disorder, single episode, unspecified; F41.9 Anxiety disorder, unspecified; F17.210 Nicotine dependence, cigarettes, uncomplicated; Z88.6 Allergy status to analgesic agent; Z88.5 Allergy status to narcotic agent; Z91.012 Allergy to eggs; Z91.011 Allergy to milk products; Z91.010 Allergy to peanuts; Z79.899 Other long term (current) drug therapy; Z79.890 Hormone replacement therapy
CPT/HCPCS: 36415; 80048; 80305-QW; 85025; 99284; 99285; G0480

== ENCOUNTER 2019-05-11 17:39 | Emergency (ER) | payer MEDICARE ==
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
[2019-05-11] MEDS ORDERED: Iopamidol 755 Mg/ML 100 ML Bottle IVPUSH ONE (17:54)
[2019-05-11 18:05] LABS: CHLORIDE,CL 109 mEq/L (98-106); SODIUM,NA 146 mEq/L (136-145)
[2019-05-11] MEDS ORDERED: LORazepam 2 MG/ML Syringe ONE (18:21)
[2019-05-11] MEDS ORDERED: LORazepam 2 MG/ML Syringe IVPUSH ONE (18:23)
[2019-05-11 19:12] VITALS: BP 150/67; PULSE 68
== END 2019-05-11 18:55 | disposition home or self-care (01) ==
LOC: CC.ED 17:39
DX: S31.133A Puncture wound of abdominal wall without foreign body, right lower quadrant without penetration into peritoneal cavity, initial encounter (principal); J45.909 Unspecified asthma, uncomplicated; E78.00 Pure hypercholesterolemia, unspecified; F90.9 Attention-deficit hyperactivity disorder, unspecified type; F41.9 Anxiety disorder, unspecified; F31.9 Bipolar disorder, unspecified; E03.9 Hypothyroidism, unspecified; Z88.6 Allergy status to analgesic agent; Z91.011 Allergy to milk products; Z91.012 Allergy to eggs; Z88.5 Allergy status to narcotic agent; Z79.899 Other long term (current) drug therapy; W26.0XXA Contact with knife, initial encounter
CPT/HCPCS: 36415; 74177; 80053; 80305-QW; 81001; 85025; 86850; 86900; 86901; 96374; 99284; 99284-25; J2060; Q9967

== ENCOUNTER 2019-11-06 02:05 | Emergency (ER) | payer MEDICARE ==
[2019-11-06 02:12] VITALS: PULSE 100
[2019-11-06 02:57] LABS: CHLORIDE,CL 104 mEq/L (98-106); SODIUM,NA 145 mEq/L (136-145)
--- NOTE | 2019-11-06 03:32 | EDM.PDOCBH ---
ED HPI GENERAL MEDICAL PROBLEM - General Chief Complaint: Behavioral/Psych Stated Complaint: "mental health clearance" Time Seen by Provider: 11/06/19 02:45 Source of Information: Reports: Patient, Family, Police History Limitations: Reports: No Limitations, Intoxication. Denies: Uncooperative - History of Present Illness INITIAL COMMENTS - FREE TEXT/NARRATIVE: Erica is a 54 yo female who is brought into the ED via deputy with the Night Monitor's office. She had been drinking this evening when she got into an altercation with her sister. She states her sister had recently moved in with her and it hasn't been easy since. She ended up getting into an argument with her sister and she had called the police. Once the police arrived it sounds as if they wanted her medically cleared. She states she has no thoughts of self harm. Admits to being bipolar and hasn't taken her medications for 3 days. States she does have an alcohol problem in which she was previously sober for 10 years. States she has been trying to get into treatment but has been unable to get into a [facility] facility d/t finances. States she has been working with Dr. Pinedo and Dr. Price in regards to this. 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 She states no one was injured tonight and she was just really upset with her sister and ended up breaking her personal belongings in her house. is present outside. - Related Data Allergies Allergy/AdvReac Type Severity Reaction Status Date / Time aspirin [From Percodan] Allergy Rash Verified 11/06/19 02:13 Dairy Products Allergy Cannot Verified 11/06/19 02:13 Remember egg Allergy Cannot Verified 11/06/19 02:13 Remember hydrocodone Allergy Cannot Verified 11/06/19 02:13 Remember oxycodone HCl [From Percodan] Allergy Rash Verified 11/06/19 02:13 oxycodone terephthalate Allergy Rash Verified 11/06/19 02:13 [From Percodan] Home Meds: Home Meds Bromocriptine [Parlodel] 2.5 mg PO DAILY 03/28/13 [History] Cyanocobalamin (Vitamin B12) [Cyanocobalamin] 1,000 mcg IM Q30D 03/28/13 [History] FLUoxetine HCl [Prozac] 40 mg PO DAILY 01/30/14 [History] Levothyroxine [Sythroid] 100 mcg PO DAILY 03/28/13 [History] Methylphenidate HCl [Ritalin] 20 mg PO TID 03/28/13 [History] Promethazine [Phenergan] 25 mg PO Q6H PRN 03/28/13 [History] traMADol HCl [Ultram] 50 mg PO BID PRN 03/28/13 [History] Albuterol Sulfate [Proair Hfa] 2 puff INH Q4HR PRN 07/03/15 [History] Cyclobenzaprine HCl 10 mg PO BEDTIME 07/03/15 [History] Divalproex Sodium 1,500 mg PO BID 07/03/15 [History] ARIPiprazole [Abilify] 5 mg PO DAILY 10/08/17 [History] Gabapentin [Neurontin] 300 mg PO TID 03/28/19 [History] Past Medical History HEENT History: Reports: Impaired Vision Cardiovascular History: Reports: Heart Murmur, High Cholesterol Respiratory History: Reports: Asthma, Other (See Below) Other Respiratory History: lung nodule 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: Musculoskeletal History: Reports: Back Pain, Chronic, Neck Pain, Chronic, Osteoarthritis Neurological History: Reports: Brain Injury, Head Trauma, Migraines, Seizure Psychiatric History: Reports: ADHD, Anxiety, Bipolar, Depression, Emotional Problems, Mood Swings, Panic Attack, Psych Hospitalization(s) Endocrine/Metabolic History: Reports: Hypothyroidism, Vitamin D Deficiency, Other (See Below) Other Endocrine/Metabolic History: hypoglycemia Hematologic History: Reports: Anemia, B12 Deficiency - Past Surgical History HEENT Surgical History: Reports: Tonsillectomy Respiratory Surgical History: Reports: None GI Surgical History: Reports: Bariatric Procedure, Colonoscopy, Hernia Repair/Other Other GI Surgeries/Procedures: GASTRIC BYPASS, HIATAL HERNIA REPAIR Musculoskeletal Surgical History: Reports: None Social & Family History - Family History Family Medical History: Noncontributory - Tobacco Use Smoking Status *Q: Never Smoker - Caffeine Use Caffeine Use: Reports: None - Alcohol Use Days Per Week of Alcohol Use: 7 Number of Drinks Per Day: 10 Total Drinks Per Week: 70 - Recreational Drug Use Recreational Drug Use: No ED ROS GENERAL - Review of Systems Review Of Systems: Comprehensive ROS is negative, except as noted in HPI. Psychiatric: Reports: Other (bipolar and alcohol abuse). Denies: Homicidal Ideation, Suicidal Ideation ED EXAM, BEHAVIORAL HEALTH - Physical Exam Exam: See Below Exam Limited By: No Limitations General Appearance: Alert, No Apparent Distress Eye Exam: Bilateral Eye: Normal Inspection Ears: Normal External Exam, Hearing Grossly Normal Nose: Normal Inspection, No Blood Throat/Mouth: Normal Inspection, Normal Voice, No Airway Compromise Head: Atraumatic, Normocephalic Neck: Normal Inspection Respiratory/Chest: No Respiratory Distress, Lungs Clear, Normal Breath Sounds, No Accessory Muscle Use Cardiovascular: Regular Rate, Rhythm, No Murmur Neurological: Alert, Normal Cognition, No Motor/Sensory Deficits, Oriented x 3 Psychiatric: Alert, Normal Affect, Normal Mood, Oriented. No: Poor Eye Contact, Uncooperative, Flight of Ideas, Homicidal Thoughts, Suicidal Plan, Suicidal Thoughts, Grandiose Thoughts, Paranoid Thoughts, Threatening Behavior Skin Exam: Warm, Dry, Intact COURSE, BEHAVIORAL HEALTH COMP - Course Vital Signs: Last Vital Signs Temp 98.7 F 11/06/19 02:10 Pulse 100 11/06/19 02:10 Resp 18 11/06/19 02:10 BP Pulse Ox 100 11/06/19 02:10 Orders, Labs, Meds: Laboratory Tests 11/06/19 11/06/19 11/06/19 Range/Units 02:37 02:37 02:37 WBC 8.7 (5.0-10.0) 10^3/uL RBC 4.45 (4.00-5.50) 10^6/uL Hgb 12.8 (12.0-16.0) g/dL Hct 39.3 (37.0-47.0) % MCV 88.3 (82.0-94.0) fL MCH 28.8 (27.0-32.0) pg MCHC 32.6 L (33.0-38.0) g/dL RDW Coeff of Nancy 16.4 H (11.0-15.0) % Plt Count 400 (150-400) 10^3/uL Neut % (Auto) 63.2 (35-85) % Lymph % (Auto) 26.2 (10-55) % [place] % (Auto) 9.1 (0-16) % Eos % (Auto) 1.2 (0-5) % Baso % (Auto) 0.3 (0-3) % Neut # (Auto) 5.47 (1.80-7.00) 10^3/uL Lymph # (Auto) 2.27 (1.00-4.80) 10^3/uL [place] # (Auto) 0.79 (0.00-0.80) 10^3/uL Eos # (Auto) 0.10 (0.00-0.45) 10^3/uL Baso # (Auto) 0.03 10^3/uL Sodium 145 (136-145) mEq/L Potassium 3.5 (3.5-5.0) mEq/L Chloride 104 (98-106) mEq/L Carbon Dioxide 28 (21-32) mmol/L BUN 16 (7-18) mg/dL Creatinine 0.8 (0.6-1.0) mg/dL Est Cr Clr Drug Dosing 70.66 mL/min Estimated GFR (MDRD) > 60 (>=60) mL/min Glucose 97 (75-99) mg/dL Calcium 8.4 (8.4-10.1) mg/dL Total Bilirubin 0.2 (0.0-1.0) mg/dL AST 22 (15-37) U/L ALT 25 (12-78) U/L Alkaline Phosphatase 91 (46-116) U/L Total Protein 7.2 (6.4-8.2) g/dL Albumin 3.6 (3.4-5.0) g/dL Urine Opiates Screen Negative (NEGATIVE) Ur Oxycodone Screen Negative (NEGATIVE) Urine Methadone Screen Negative (NEGATIVE) Ur Barbiturates Screen Negative (NEGATIVE) U Tricyclic Antidepress Negative (NEGATIVE) Ur Phencyclidine Scrn Negative (NEGATIVE) Ur Amphetamine Screen Negative (NEGATIVE) U Methamphetamines Scrn Positive H (NEGATIVE) Urine MDMA Screen Negative (NEGATIVE) U Benzodiazepines Scrn Negative (NEGATIVE) Urine Cocaine Screen Negative (NEGATIVE) U Marijuana (THC) Screen Negative (NEGATIVE) Ethyl Alcohol 152 H (0-3) mg/dL Departure - Departure Time of Disposition: 03:34 Disposition: Home, Self-Care 01 Clinical Impression: Alcohol abuse, Combative behavior, Encounter for medical screening examination - Discharge Information Referrals: PCP,None [Primary Care Provider] - Additional Instructions: 1) Will call in the morning for assistance with inpatient treatment for alcoholism as discussed. 2) Encourage refraining from current situation with sister 3) Follow up with Dr. Price this week to discuss treatment options as well 4) Follow up with Dr. Pinedo this week as well Sepsis Event Note (ED) - Evaluation Sepsis Screening Result: No Definite Risk - Focused Exam Vital Signs: Vital Signs Temp Pulse Resp Pulse Ox 11/06/19 02:10 98.7 F 100 18 100 - Problem List & Annotations (1) Combative behavior SNOMED Code(s): 136105477 Code(s): R46.89 - OTHER SYMPTOMS AND SIGNS INVOLVING APPEARANCE AND BEHAVIOR Status: Acute Current Visit: Yes (2) Encounter for medical screening examination SNOMED Code(s): 568118332 Code(s): Z13.9 - ENCOUNTER FOR SCREENING, UNSPECIFIED Status: Acute Current Visit: Yes (3) Alcohol abuse SNOMED Code(s): 46580572 Code(s): F10.10 - ALCOHOL ABUSE, UNCOMPLICATED Status: Chronic Priority: Medium Current Visit: Yes - Assessment/Plan Plan: Tru appears to be doing a lot better upon arrival to ED. She doesn't show any signs of self harm or wanting to harm anyone else. I did discuss with local law enforcement Erica's situation. He currently is not charging her with anything at this time. States the sister was being taken to snf tonight so the trigger will not be in the home. Homer, patient's , is waiting outside and I did discuss with him Erica's current situation. He states he does feel safe at home with Erica and is comfortable taking her home tonight as the sis ter isn't there at this time. Laboratory work is stable. Will discharge home to .
== END 2019-11-06 03:54 | disposition home or self-care (01) ==
LOC: CC.ED 02:05
DX: R45.6 Violent behavior (principal); F10.129 Alcohol abuse with intoxication, unspecified; E78.00 Pure hypercholesterolemia, unspecified; J45.909 Unspecified asthma, uncomplicated; F41.9 Anxiety disorder, unspecified; F31.9 Bipolar disorder, unspecified; E03.9 Hypothyroidism, unspecified; Y90.6 Blood alcohol level of 120-199 mg/100 ml; Z88.5 Allergy status to narcotic agent; Z88.6 Allergy status to analgesic agent; Z91.011 Allergy to milk products; Z91.012 Allergy to eggs; Z79.899 Other long term (current) drug therapy
CPT/HCPCS: 36415; 80053; 80305-QW; 80307; 85025; 99284

== ENCOUNTER 2021-05-19 15:50 | Emergency (ER) | payer MEDICARE ==
[2021-05-19 16:20] LABS: CHLORIDE,CL 107 mEq/L (98-106); SODIUM,NA 148 mEq/L (136-145)
[2021-05-19] MEDS ORDERED: Ondansetron 4 MG/2 ML SDV IVPUSH PRN (16:30)
[2021-05-19] MEDS: Sodium Chloride 0.9% 1,000 ML IV ONE ×2 (16:46→19:36)
[2021-05-19 17:47] LABS: AMPHETAMINES,URINE NEGATIVE (NEGATIVE); BARBITURATES,URINE NEGATIVE (NEGATIVE); BENZODIAZEPINE,URINE NEGATIVE (NEGATIVE); MDMA (ECSTASY), URINE NEGATIVE (NEGATIVE); METHADONE,URINE NEGATIVE (NEGATIVE); METHAMPHETAMINES,URINE POSITIVE (NEGATIVE); OPIATES,URINE NEGATIVE (NEGATIVE); OXYCODONE,URINE NEGATIVE (NEGATIVE); PHENCYCLIDINE,URINE NEGATIVE (NEGATIVE); TCA,URINE NEGATIVE (NEGATIVE)
[2021-05-19 17:54] VITALS: BP 114/87; PULSE 75
[2021-05-19] MEDS ORDERED: Sodium Chloride 0.9% 1,000 ML ONE (18:25)
[2021-05-19] MEDS ORDERED: Promethazine 12.5 MG in Sodium Chloride 0.9% 100 ML IV ONE (19:25)
== END 2021-05-19 19:50 ==
LOC: CC.ED 15:50
DX: F32.A Depression, unspecified (principal); F41.9 Anxiety disorder, unspecified; F10.10 Alcohol abuse, uncomplicated; F19.90 Other psychoactive substance use, unspecified, uncomplicated; E78.00 Pure hypercholesterolemia, unspecified; Z91.012 Allergy to eggs; Z91.011 Allergy to milk products; Z88.5 Allergy status to narcotic agent; Z88.8 Allergy status to other drugs, medicaments and biological substances; Z20.822 Contact with and (suspected) exposure to COVID-19
CPT/HCPCS: 0240U; 36415; 80053; 80143; 80179; 80305-QW; 80307; 81001; 83690; 83735; 85025; 87804; 96365; 96375; 99284; 99284-25; J2405; J2550; J7030; U0002

== ENCOUNTER 2021-12-18 14:15 | Emergency (ER) | payer MEDICARE ==
[2021-12-18] MEDS ORDERED: Sodium Chloride 0.9% 10 ML Syringe FLUSH PRN (14:22)
[2021-12-18 14:36] VITALS: BP 136/55; PULSE 75
[2021-12-18 14:45] LABS: AMPHETAMINES,URINE POSITIVE (NEGATIVE); BARBITURATES,URINE NEGATIVE (NEGATIVE); BENZODIAZEPINE,URINE NEGATIVE (NEGATIVE); MDMA (ECSTASY), URINE NEGATIVE (NEGATIVE); METHADONE,URINE NEGATIVE (NEGATIVE); METHAMPHETAMINES,URINE POSITIVE (NEGATIVE); OPIATES,URINE NEGATIVE (NEGATIVE); OXYCODONE,URINE NEGATIVE (NEGATIVE); PHENCYCLIDINE,URINE NEGATIVE (NEGATIVE); TCA,URINE NEGATIVE (NEGATIVE)
[2021-12-18] MEDS: Ondansetron 4 MG Tab.DIS PO ONE (15:05)
[2021-12-18] MEDS ORDERED: Diphtheria,Pertussis(Acell),Tetanus Vaccine 0.5 ML Syringe IM ONE (15:23)
[2021-12-18] MEDS: Ondansetron 4 MG Tab.DIS ONE (16:12)
[2021-12-18] MEDS: Lidocaine 1% with EPINEPHrine 1:100,000 20 ML MDV ONE (16:13)
[2021-12-18] MEDS: Lidocaine 1% with EPINEPHrine 1:100,000 20 ML MDV INJECT ONE (16:15)
[2021-12-18] MEDS: Diphtheria,Pertussis(Acell),Tetanus Vaccine 0.5 ML Syringe IM ONE (16:46)
[2021-12-18] MEDS: Bacitracin/Neomycin/Polymyxin B Oint 0.9 GM U/D Packet TOP ONE (16:48)
== END 2021-12-18 18:10 | disposition home or self-care (01) ==
LOC: CC.ED 14:15
DX: S61.512A Laceration without foreign body of left wrist, initial encounter (principal); J45.909 Unspecified asthma, uncomplicated; F32.9 Major depressive disorder, single episode, unspecified; Z88.6 Allergy status to analgesic agent; Z91.011 Allergy to milk products; Z91.012 Allergy to eggs; Z88.5 Allergy status to narcotic agent; Z79.899 Other long term (current) drug therapy; Z20.822 Contact with and (suspected) exposure to COVID-19
CPT/HCPCS: 12004; 36415; 80053; 80305-QW; 80307; 81001; 85025; 90471; 90715; 93005; 93010; 99284; 99284-25; A9270-GY; U0002

== ENCOUNTER 2023-06-03 10:02 | Emergency (ER) | payer MEDICARE ==
[2023-06-03 10:13] VITALS: BP 83/53; PULSE 62
[2023-06-03] MEDS: Bacitracin/Neomycin/Polymyxin B Oint 0.9 GM U/D Packet TOP ONE (10:47)
[2023-06-03] MEDS: traMADol 50 MG Tab PO ONE (10:50)
[2023-06-03] MEDS: Take Home: traMADol 50 MG, 4 Tab Pack PO ONE (12:49)
== END 2023-06-03 13:10 | disposition home or self-care (01) ==
LOC: CC.ED 10:02
DX: S82.001A Unspecified fracture of right patella, initial encounter for closed fracture (principal); S00.83XA Contusion of other part of head, initial encounter; J45.909 Unspecified asthma, uncomplicated; E78.00 Pure hypercholesterolemia, unspecified; E03.9 Hypothyroidism, unspecified; F17.210 Nicotine dependence, cigarettes, uncomplicated; Z91.011 Allergy to milk products; Z88.8 Allergy status to other drugs, medicaments and biological substances; Z79.899 Other long term (current) drug therapy; W19.XXXA Unspecified fall, initial encounter
CPT/HCPCS: 70450; 70486; 73562-LT; 99284; A9270-GY

== ENCOUNTER 2023-09-18 17:58 | Emergency (ER) | payer MEDICARE ==
[2023-09-18 18:01] VITALS: BP 150/96; PULSE 115
== END 2023-09-18 18:18 ==
LOC: CC.ED 17:58
DX: F10.120 Alcohol abuse with intoxication, uncomplicated (principal); E78.00 Pure hypercholesterolemia, unspecified; J45.909 Unspecified asthma, uncomplicated; Z79.899 Other long term (current) drug therapy; Z88.5 Allergy status to narcotic agent; Z88.6 Allergy status to analgesic agent; Z91.011 Allergy to milk products
CPT/HCPCS: 99283